=== PATIENT | female | born 1935 | race Caucasian/White ===

== ENCOUNTER 2016-10-01 05:07 | Emergency (ER) | payer MEDICARE, MEDICAID ==
[~2016-10-01 05:07] MED LIST: ARTIFICIAL TEAR OU; ASA CHILDREN'S81 MG PO; CALCIUM 600 +1 EAC3 PO; CEFTIN250 MG PO; CLARITIN DPS10 MG PO; DAILY MULTIPLE1 EAC1 PO; DILTIAZEM PO; EUCERIN LOTION TP; MAALOX DPS30 ML PO; METOPROLOL TART50 MG PO; PEPCID20 MG PO; PLAVIX75 MG PO; PRAVACHOL40 MG PO; ROBITUSSIN100 MG/5 M PO; ROCALTROL DP0.25 MCG PO; SIMETHICONE PO; SIMETHICONE80 MG PO; SLOW-MAG64 MG PO; SOD BICARB TAB650 MG PO; SYNTHROID88 MCG PO; VOLTAREN 1% GE100 GM TP
--- NOTE | 2016-10-05 15:36 | ER ---
ADMIT: 10/01/2016 RM/LOC: ER [facility] MR#: [id number] [id number] [address] [place] [address] Emergency Room Report SEX: F AGE: 81 : 1935 DATE: 10/01/2016 ADDENDUM: This 81-year-old white female coming in with fever, she was only 99.9 here. She is worked up as a sepsis. Her lactate is negative. Her magnesium is low but it is chronically at 0.8. Her creatinine is 2.2 which is chronic for her. White count 12.8, hemoglobin is 9.2. Urine is her source that she has recurrent urinary tract infections. At this time, I did speak with Dr. Rainey. We gave her a dose of Zosyn, 750 of Levaquin which we will dose as an [id number]-[id number]-[id number] dose starting on Monday. She will get 500 every day until she clears. I spoke with [facility] where she is, and they will follow up with her per Dr. Rainey, per Dr. Hook's plan. CONDITION ON DISCHARGE: Good. Ze Kiran MD/ lia JOB #: [id number] CC: Asa Valdovinos MD, Attending Physician
[2016-10-20] MEDS ORDERED: TYLENOL325 MG PO (08:29)
[2016-10-20] MEDS ORDERED: IMODIUM DPS2 MG PO (08:30)
[2016-10-20] MEDS ORDERED: ROBITUSSIN DM D30 ML PO (08:30)
== END 2016-10-01 10:40 | disposition home or self-care (01) ==
LOC: ER 05:07
DX: N28.9 Disorder of kidney and ureter, unspecified (principal); N39.0 Urinary tract infection, site not specified; E78.5 Hyperlipidemia, unspecified; I10 Essential (primary) hypertension; Z86.79 Personal history of other diseases of the circulatory system; Z98.890 Other specified postprocedural states; Z90.49 Acquired absence of other specified parts of digestive tract; Z90.710 Acquired absence of both cervix and uterus; Z79.02 Long term (current) use of antithrombotics/antiplatelets

== ENCOUNTER 2016-10-16 12:58 | Inpatient (IN) | payer MEDICARE, MEDICAID ==
[~2016-10-16] VITALS: Ht 149.9 cm; Wt 71.6 kg
--- NOTE | ~2016-10-16 | ECH ---
Transthoracic Echocardiography Report (TTE) Demographics Patient Name REN ESQUIVEL Date of Study 10/17/2016 A Patient Number [id number] Visit Number [id number] Date of 1935 Room Number 506 Accession Number [id number] Gender Female Age 81 year(s) Referring Monster Kelly MD Reel Assembler Alix Horn [facility] Physician Physician Interpreting Javed Gooden MD Coagulating Bath Operator Physician Supervising Ordering Physician Serena Castro MD/GREG DESAI Nurse Stress Refractory Bricklayer Conclusions Summary Technically fair exam. The estimated left ventricular ejection fraction is 50-55%. Mild concentric left ventricular hypertrophy. Diastolic assessment reveals Grade II pseudonormal diastolic function . Bubble study was done, there is no evidence for a PFO or ASD. The right atrium is mildly dilated. Mild-moderate tricuspid regurgitation by color Doppler. There is mild pulmonary hypertension. The pulmonary pressure (RVSP) is 42 mmHg. Procedure Type of Study TTE procedure:Echo Complete SF. Procedure Date Date: 10/17/2016 Start: 08:29 AM Technical Quality: Fair due to poor acoustical window. Indications:Hypertension. Additional Indications:slurred speech, confunsion, ruling out TIA Appropriate Use Criteria: 9 Contrast Medium: Bubble Study. Height: 59 inches Weight: 157 pounds BSA: 1.66 m Rhythm: Irregular HR: 66 bpm BP: 163/99 mmHg M-Mode/2D Measurements LV Diastolic Dimension: 3.99 cm LV Systolic Dimension: 2.8 cm LV Septum Diastolic: 1.13 cm LV PW Diastolic: 1.16 cm AO Root Dimension: 2.65 cm Cardiac Output: 3.44 l/min LA Dimension: 2.9 cm Cardiac Index: 2.07 l/min*m RV Diastolic Dimension: 2.26 cm LA volume index: 27 ml/m LVOT: 1.7 cm LVOT VTI: 23 cm RV Base: 4.2 cm LV Stroke volume: 52.18 ml RV Mid: 2.6 cm LV Stroke volume index: 31.43 ml/m RV Length: 5.5 cm TAPSE: 2.78 cm TDI-S': 12 cm/s Doppler Measurements AV Peak Velocity: 1.34 m/s MV Peak E-Wave: 1.17 m/s AV Peak Gradient: 7.18 mmHg MV Peak A-Wave: 0.79 m/s AV Mean Gradient: 4 mmHg MV E/A Ratio: 1.48 LVOT Peak Velocity: 0.92 m/s MV P1/2t: 58.9 msec AV Area (Continuity):1.58 cm TR Velocity:3.06 m/s MV Deceleration Time: 203 msec TR Gradient:37.45 mmHg MV Area (PHT): 3.74 cm Estimated RAP:5 mmHg Estimated RVSP: 42 mmHg Estimated PASP: 42.45 mmHg RA Area: 19.82 cm Findings Left Ventricle The left ventricle is normal in size . Mild concentric left ventricular hypertrophy. Diastolic assessment reveals Grade II pseudonormal diastolic function . Right Ventricle Normal right ventricle structure and function. Left Atrium Normal left atrial size. Bubble study was done, there is no evidence for a PFO or ASD. Right Atrium The right atrium is mildly dilated. Mitral Valve Normal mitral valve structure and function. Mild mitral regurgitation by color Doppler. Aortic Valve Normal aortic valve structure and function. Tricuspid Valve Normal appearing tricuspid valve. Mild-moderate tricuspid regurgitation by color Doppler. There is mild pulmonary hypertension. The pulmonary pressure (RVSP) is 42 mmHg. Pulmonic Valve The pulmonic valve is not well visualized. Pericardial Effusion No evidence of pericardial effusion. Miscellaneous Visualized portions of the aortic root and ascending aorta appear normal in size. Pleural Effusion No evidence of pleural effusion. Signature
--- NOTE | 2016-10-17 06:57 | HP ---
ADMIT: 10/16/2016 RM/LOC: 506 [facility] MR#: [id number] [address] [address] [place] [address] History and Physical SEX: F AGE: 81 : 1935 DATE OF SERVICE: CHIEF COMPLAINT: Mental status changes and slurred speech. HISTORY OF PRESENT ILLNESS: This is an 81-year-old female. She has a history of TIA as well as what they describe as colonization of her urine. She presented to the emergency room because of some confusion episodes. She usually stays at [facility]. Apparently, she has been having some confusion, and they recently did urinalysis. In fact, they just did one yesterday and had 4000 white cells and many clumps. I was called with this result. When asked if she had many urinary infections or if she had antibiotics recently, they said no. She was put on ciprofloxacin. Upon evaluation here today, her main complaints are some confusion that happened in the night. She was unaware of who she was or where she was. She also has some slurring of her speech. Her family thought she be evaluated for this. She denies any specific weakness of her arms or legs. She is chronically debilitated and usually has a lift to get around. Her family describes her as always sharp and this confusion is a big change for her. PAST MEDICAL HISTORY: Includes history of colon cancer, status post resection with chronic ostomy. She has anemia of chronic disease, chronic kidney disease stage 4, hypertension, history of a stroke, history of endometrial cancer, hyperlipidemia, hypertension, hypothyroidism, and osteoporosis. MEDICATIONS: Per the last medications that I can see were: 1. Aspirin 81 mg daily. 2. Calcium 600. 3. Iron 325 mg. 4. Loratadine 10 mg. 5. Magnesium oxide 400. 6. Multivitamin daily. 7. Vitamin D 50,000 units. 8. Plavix 75 mg daily. 9. Vitamin B12. 10.Hydralazine 25 mg t.i.d. 11.Synthroid 125 mcg daily. 12.Claritin 10 mg daily. 13.Metoprolol 25 mg b.i.d. 14.Oxybutynin 5 mg daily. 15.Protonix 40 mg daily. 16.Pravastatin 40 mg daily. 17.Bicarbonate 650 mg t.i.d. ALLERGIES: ALLOPURINOL AND CODEINE. IMMUNIZATIONS: She had a Prevnar in 2014 and Pneumovax in 2011. PAST MEDICAL HISTORY: Other history includes a post-polio muscle weakness and coronary artery disease. ADMIT: 10/16/2016 RM/LOC: 506 [facility] MR#: [id number] [address] [address] [place] [address] History and Physical SEX: F AGE: 81 : 1935 PAST SURGICAL HISTORY: Surgeries include left total knee arthroplasty, thyroidectomy, right total hip arthroplasty, colectomy, and hernia repair. She has had cystoscopy in the past. She has a left lower extremity venous stripping. FAMILY HISTORY: Mother had dementia. Father had emphysema. SOCIAL HISTORY: She reports she has been a never smoker. REVIEW OF SYSTEMS: Other complete review of systems obtained and negative except as above. PHYSICAL EXAMINATION: VITAL SIGNS: Per the emergency room records, but they are stable. GENERAL: Well-appearing 81-year-old female. She is lying flat in bed. HEENT: Head is normocephalic and atraumatic. Pupils equal, round, and reactive to light and accommodation. Her eyes do have a little swelling around them. Throat is clear. NECK: Supple. Post thyroidectomy scar. Trachea midline. HEART: Regular rate and rhythm. LUNGS: Diminished, but clear bilaterally. ABDOMEN: Soft, without any tenderness. EXTREMITIES: Her lower extremities have diffuse 2+ doughy edema. Her left lower extremity is wrapped. She has bandage on her left foot. She has generalized weakness to lower extremities. Cranial nerves are intact. She can move her upper extremities equally bilaterally. Otherwise, neurologically unchanged for her. LABORATORY AND X-RAY DATA: Urine today shows 220 white cells, positive nitrites, and 3+ leukocyte esterase. White count is 9.0, hemoglobin 9.4, and platelets of 279. CMP shows sodium of 140, potassium 3.9, chloride 105, bicarb 27, BUN 22, creatinine 2.3, and albumin 2.9. TSH is pending. ASSESSMENT AND PLAN: 1. Confusion. 2. Some dysarthria. 3. Urinary tract infection. History of extended-spectrum beta-lactamase ADMIT: 10/16/2016 RM/LOC: 506 [facility] MR#: [id number] [address] [place] [id number] [place] [address] History and Physical SEX: F AGE: 81 : 1935 Escherichia coli in her urine. Possible urinary colonization with this. 4. Post-polio syndrome with debility. 5. History of stroke. 6. Hypertension. 7. Hyperlipidemia. PLAN: She will be admitted with TIA workup. Also, I will treat her with Merrem for her urinary tract infection as this may be causing her confusion symptoms. The last TSH reading I have on her is from last April and that reading was 60. We will go ahead and repeat that hopefully it will actually much better than that, and we will add regular home medicines when we get that list [place] [facility]. Britton Lyons MD/ lia JOB #: [id number] CC: Dario Hook, Attending Physician Dario Hook, Family Physician
--- NOTE | 2016-10-18 00:03 | ER ---
ADMIT: 10/16/2016 RM/LOC: 506 [facility] MR#: [id number] 2620 [facility] [address] [place] [id number] [place] [address] Emergency Room Report SEX: F AGE: 81 : 1935 DATE: 10/16/2016 HISTORY OF PRESENT ILLNESS: An 81-year-old female, who was recently discharged from the hospital after being treated for a severe urinary tract infection. She has become increasingly confused over the past two days while at the custodial. The patient is alert and appropriate, but family is concerned because she seemed more confused in the morning then usual. The patient herself was unaware of this. She was appropriate for me during the history. She has no complaints, but does keeps saying she is concerned her urinary tract infection is back. PHYSICAL EXAMINATION: GENERAL: Reveals an elderly female, in no acute distress. She is alert and oriented with no focal neurologic findings. She has generalized weakness and seems to be transferred by [employer] lift. LUNGS: Clear bilaterally. CARDIOVASCULAR: Regular rate and rhythm. ABDOMEN: Obese. Ostomy is present with stool drainage. EXTREMITIES: Revealed bilateral edema in lower extremities. LABORATORY DATA: A CBC was within normal limits except for hemoglobin 9.4. Electrolytes, creatinine 2.3. UA was positive for nitrates, 3+ leukocyte esterase, 220 wbc's. Culture results were reviewed from a prior UA that was done, mostly . I did contact Dr. Lyons and discussed care for her urinary tract infection. We elected to admit her and use IV meropenem. DIAGNOSES: 1. Urinary tract infection. 2. Chronic renal failure. González Irvin MD/ lia JOB #: [id number] CC: Dario Hook MD, Attending Physician Dario Hook MD, Family Physician
[2016-10-20] MEDS ORDERED: TYLENOL325 MG PO (08:29)
[2016-10-20] MEDS ORDERED: IMODIUM DPS2 MG PO (08:30)
[2016-10-20] MEDS ORDERED: ROBITUSSIN DM D30 ML PO (08:30)
--- NOTE | 2016-10-22 21:42 | DS ---
ADMIT: 10/16/2016 RM/LOC: 506 [facility] MR#: [id number] [address] [address] [place] [address] Discharge Summary SEX: F AGE: 81 : 1935 ADMISSION DATE: 10/16/2016 DISCHARGE DATE: 10/18/2016 CONSULTATIONS: None. PROCEDURES: Midline placed. FINAL DIAGNOSES: 1. Drug-resistant UTI (urinary tract infection). 2. Toxic encephalopathy secondary to infection. ESBL (extended-spectrum beta-lactamases) UTI (urinary tract infection). 3. Anemia of chronic disease. 4. Chronic kidney disease, stage III. 5. History of post-polio syndrome and weakness. REASON FOR ADMISSION: An 81-year-old female, not acting like herself. Confused at the [facility]. Found to have a UTI in the ER. Admitted for further stabilization. HOSPITAL COURSE: The patient was admitted. Placed on IV antibiotics. She slowly and steadily improved. Her mental status returned back to normal. She was treated for her UTI with antibiotics. She overall felt safe and stable for discharge to correction facility. Arrangements were made. DISCHARGE INSTRUCTIONS: Please see discharge MAR, which I fully reviewed. She will finish a course of ertapenem. She will follow up with me in clinic within the next 10 days. Dario Hook MD/ davina JOB #: [id number] CC: Dario Hook MD, Attending Physician Dario Hook MD, Family Physician
== END 2016-10-18 11:40 | DRG 689 ==
LOC: ER 12:58 → 5MS 14:54
PROVIDERS: ADMIT Internal Medicine
DX: N39.0 Urinary tract infection, site not specified (principal); G92 Toxic encephalopathy; N18.3 Chronic kidney disease, stage 3 (moderate); D63.1 Anemia in chronic kidney disease; I12.9 Hypertensive chronic kidney disease with stage 1 through stage 4 chronic kidney disease, or unspecified chronic kidney disease; E78.5 Hyperlipidemia, unspecified; E03.9 Hypothyroidism, unspecified; M81.0 Age-related osteoporosis without current pathological fracture; I25.10 Atherosclerotic heart disease of native coronary artery without angina pectoris; R47.1 Dysarthria and anarthria; M62.81 Muscle weakness (generalized); B91 Sequelae of poliomyelitis; Z93.3 Colostomy status; Z86.73 Personal history of transient ischemic attack (TIA), and cerebral infarction without residual deficits; Z85.038 Personal history of other malignant neoplasm of large intestine; Z79.82 Long term (current) use of aspirin; Z85.41 Personal history of malignant neoplasm of cervix uteri; Z96.652 Presence of left artificial knee joint; Z16.12 Extended spectrum beta lactamase (ESBL) resistance; Z66 Do not resuscitate

== ENCOUNTER 2016-10-29 23:08 | Emergency (ER) | payer MEDICARE, MEDICAID ==
[~2016-10-29 23:08] MED LIST changes: +IMODIUM DPS2 MG PO; +ROBITUSSIN DM D30 ML PO; +TYLENOL325 MG PO
--- NOTE | 2016-10-30 06:25 | ER ---
ADMIT: 10/29/2016 RM/LOC: ER [facility] MR#: [id number] 2620 [facility] [address] [place] [address] Emergency Room Report SEX: F AGE: 81 : 1935 DATE: 10/29/2016 Patient is an 81-year-old female transferred from [facility] because of confusion tonight, being treated for UTI with IV Invanz. She states she feels fine and is not sure why she is transferred. Patient is basically bedridden. Does not bear weight. Exam remarkable for nontoxic, afebrile, lucid female. No orthostatic blood pressure change. Hemoglobin 9.3, up from 8.3, most recent hospitalization. Potassium 3.6. UA; 149 WBCs, 6 RBCs, 3+ leukocyte esterase, lactic 2.0. Chest x-ray, no acute findings. Advised continuing all current prison orders. Follow up Dr. Hook as needed. Janusz Turner MD/ lia JOB #: [id number] CC: Janusz Turner MD, Attending Physician Dario Hook MD, Family Physician Dario Hook MD
== END 2016-10-30 00:50 | disposition home or self-care (01) ==
LOC: ER 23:08
DX: N39.0 Urinary tract infection, site not specified (principal); B95.2 Enterococcus as the cause of diseases classified elsewhere; I25.10 Atherosclerotic heart disease of native coronary artery without angina pectoris; I12.9 Hypertensive chronic kidney disease with stage 1 through stage 4 chronic kidney disease, or unspecified chronic kidney disease; N18.3 Chronic kidney disease, stage 3 (moderate); D63.1 Anemia in chronic kidney disease; E78.5 Hyperlipidemia, unspecified; E03.9 Hypothyroidism, unspecified; Z88.6 Allergy status to analgesic agent; Z93.3 Colostomy status; Z88.8 Allergy status to other drugs, medicaments and biological substances; Z79.82 Long term (current) use of aspirin; Z79.899 Other long term (current) drug therapy

== ENCOUNTER → 2016-11-11 | Outpatient (CLI) | payer MEDICARE, MEDICAID | END | disposition home or self-care (01) | LOC: CARD 10:00 | DX: Z45.2 Encounter for adjustment and management of vascular access device (principal); N39.0 Urinary tract infection, site not specified ==